=== PATIENT | female | born 1940 | race Caucasian/White ===

== ENCOUNTER → 2019-07-16 | Outpatient (CLI) | payer OTHER | LOC: RAD 13:19 | DX: J45.50 Severe persistent asthma, uncomplicated (principal); J84.10 Pulmonary fibrosis, unspecified; Z88.8 Allergy status to other drugs, medicaments and biological substances ==

== ENCOUNTER → 2020-05-05 | Outpatient (CLI) | payer OTHER | LOC: LAB 07:31 | PROVIDERS: ATTEND Internal Medicine | DX: Z20.828 Contact with and (suspected) exposure to other viral communicable diseases (principal) ==

== ENCOUNTER → 2020-07-07 | Outpatient (CLI) | payer OTHER | LOC: LAB 13:13 → CAT 13:13 | PROVIDERS: ATTEND Internal Medicine | DX: J98.11 Atelectasis (principal); J84.10 Pulmonary fibrosis, unspecified ==

== ENCOUNTER → 2021-02-03 | Outpatient (CLI) | payer OTHER | LOC: RAD 11:55 | PROVIDERS: ATTEND Internal Medicine | DX: S22.41XD Multiple fractures of ribs, right side, subsequent encounter for fracture with routine healing (principal); J45.51 Severe persistent asthma with (acute) exacerbation; X58.XXXD Exposure to other specified factors, subsequent encounter ==

== ENCOUNTER → 2021-03-18 | Outpatient (CLI) | payer OTHER ==
[~2021-03-18] VITALS: Ht 154.9 cm; Wt 54.0 kg
[~2021-03-18] MED LIST: ALBUTEROL0.63 MG/3 INH; ASA81BEC PO; CYMBALTA20 MG PO; ESTRING1 EACH VAG; HYDROCODON-ACE1 EAC7 PO; HYOSCYAMINE0.125 M1 SUBLING; INCRUSE ELLI62.5 MCG INH; MIRALAX119 GM PO; NORVASC5 MG PO; OMEPRAZOLE 20 M20 M1 PO; PROAIR HFA8.5 GM INH; RISEDRONATE SO150 MG PO; ROSUVASTATIN CA20 MG PO; SINGULAIR 10 MG10 M1 PO; SYMBICORT80 MCG/4.1 INH; TESSALON PERLE100 M1 PO; TRAMADOL 50 MG50 MG PO; XANAX 0.5 MG0.5 M1 PO
[2021-03-18 10:11] VITALS: BP 132/60
--- NOTE | 2021-03-18 10:35 | NUR ---
[facility] Assessment: 1. History of Osteoarthritis: SPINE HANDS ANKLES KNEES History of Rheumatoid Arthritis: 2. Height: 5 ft. 1 in. 154.9 cm. Weight: 119.0 lb. oz. 53.978 kg. Patient's BMI: 22.5 3. Vital Signs: BP: 132/60 Pulse: 82 Resp: 14 Temp: 02 Sat: 100 ECG Mon: 4. Pain Intensity: 5 5. Fall Risk: Dizziness: N Needs help standing or walking: N Fallen in the last 3 months: N Fall risk comments: 6. Patient on Blood Thinner: None 7. History of Hypertension: Y 8. Opioid Therapy greater than 6 weeks: Opiate Contract Signed: 9. Risk Assessment Tool Provided: 0 LOW RISK 10. Functional Assessment Tool: 11. Recreational Drug Use: Never Drug Type: Tobacco Use: Never Smoker Tobacco Type: Amount or Packs/day: How Many Years: Alcohol Use: Yes Frequency: Monthly Quant: 1
== END ==
LOC: PAIN 07:00
PROVIDERS: ATTEND Anesthesiology Pain Medicine
DX: S22.41XD Multiple fractures of ribs, right side, subsequent encounter for fracture with routine healing (principal); C44.91 Basal cell carcinoma of skin, unspecified; J82.83 Eosinophilic asthma; E78.5 Hyperlipidemia, unspecified; I10 Essential (primary) hypertension; D86.9 Sarcoidosis, unspecified; X58.XXXD Exposure to other specified factors, subsequent encounter; Z90.710 Acquired absence of both cervix and uterus; Z88.8 Allergy status to other drugs, medicaments and biological substances; Z88.0 Allergy status to penicillin; Z79.82 Long term (current) use of aspirin; Z79.899 Other long term (current) drug therapy

== ENCOUNTER → 2021-03-23 | Outpatient (CLI) | payer OTHER | LOC: RAD 12:36 | PROVIDERS: ATTEND Internal Medicine | DX: J84.10 Pulmonary fibrosis, unspecified (principal); R06.02 Shortness of breath; S22.41XD Multiple fractures of ribs, right side, subsequent encounter for fracture with routine healing; X58.XXXD Exposure to other specified factors, subsequent encounter ==